=== PATIENT | male | born 1990 | race African-American/Black ===

== ENCOUNTER 2017-02-17 15:05 | Emergency (ER) | payer OTHER ==
[~2017-02-17] VITALS: Ht 182.9 cm; Wt 93.0 kg
[2017-02-17 15:09] VITALS: BP 119/68
--- NOTE | 2017-02-17 15:22 | NUR ---
Patient being evaluated by Dr. Ruiz at bedside.
--- NOTE | 2017-02-17 15:28 | NUR ---
Pt taken to x-ray via w/c.
--- NOTE | 2017-02-17 15:31 | NUR ---
26/M c/o lower abdominal pain x3 weeks. Pt also c/o pain with urination. Pt also reports constipation. Abdomen soft, non tender, active bowel sounds x4 quadrants. VSS. at bedside.
[2017-02-17 15:52] LABS: BASOPHILS # (AUTO) 0.3 K/uL (0.00-0.22); EOSINOPHILS # (AUTO) 0.2 K/uL (0-0.4); HEMATOCRIT 43.2 % (36-52); HEMOGLOBIN 14.3 g/dL (12.0-18.0); LYMPHOCYTES # (AUTO) 0.8 K/uL (2.0-11.5); MEAN CORPUSCULAR HEMOGLOBIN 30 pg (27-31); MEAN CORPUSCULAR HGB CONC 33 g/dL (33-37); MEAN CORPUSCULAR VOLUME 91 fL (80-94); MONOCYTES # (AUTO) 0.4 K/uL (0.8-1.0); NEUTROPHILS # (AUTO) 4.7 K/uL (1.8-7.7); PLATELET COUNT (AUTO) 205 K/uL (140-450); RED BLOOD CELL COUNT(AUTO) 4.78 MIL/uL (4.20-6.10); RED CELL DISTRIBUTION WIDTH 12.7 % (11.6-13.7); WHITE BLOOD COUNT (AUTO) 6.4 K/uL (4.8-10.8)
[2017-02-17 16:29] LABS: ALBUMIN 4.2 g/dL (3.4-5.0); ANION GAP 17.6 (8-16); CARBON DIOXIDE 22.6 mmol/L (21-32); CREATININE 1.2 mg/dL (0.7-1.3); POTASSIUM 4.2 mmol/L (3.5-5.1); TOTAL BILIRUBIN 0.4 mg/dL (0.0-1.0)
--- NOTE | 2017-02-17 16:34 | NUR ---
Dr. Ruiz re-evaluating patient at bedside.
[2017-02-17 16:54] VITALS: BP 111/63
--- NOTE | 2017-02-17 16:55 | NUR ---
Chart checked and completed. The patient's care was reviewed and supervised by Marely Villarreal RN.
--- NOTE | 2017-02-17 16:55 | NUR ---
Patient discharged with v/s stable. Written and verbal after care instructions given and explained. Patient alert, oriented and verbalized understanding of instructions. Ambulatory with steady gait. All questions addressed prior to discharge. ID band removed. Patient advised to follow up with PMD. Rx of MIRALAX POWDER given. Patient educated on indication of medication including possible reaction and side effects. Opportunity to ask questions provided and answered.
[2017-02-19 08:04] LABS: CHLAMYDIA TRACHOMATIS AMP DNA NEGATIVE (NEGATIVE)
== END 2017-02-17 16:55 | disposition home or self-care (01) ==
LOC: MED 15:05
DX: K59.00 Constipation, unspecified (principal); R11.2 Nausea with vomiting, unspecified
CPT/HCPCS: 36415; 74000; 80053; 81002; 83690; 85025; 87491; 99285